=== PATIENT | female | born 1970 | race Caucasian/White ===

== ENCOUNTER 2018-03-23 15:38 | Outpatient (REF) | payer BC, SELFPAY ==
[2018-03-23 21:20] LABS: TSH (W/Ref FT4) 1.24 uIU/mL (0.358-3.74)
== END 2018-03-23 15:39 ==
LOC: NCHCN 15:38
PROVIDERS: PCP Family Medicine; Visit Provider Nurse Practitioner Family
DX: M25.559 Pain in unspecified hip (principal); F32.9 Major depressive disorder, single episode, unspecified; E66.9 Obesity, unspecified
CPT/HCPCS: 84443

== ENCOUNTER 2018-09-07 09:42 | Outpatient (REF) | payer BC, SELFPAY ==
[2018-09-07 21:23] LABS: HCT 38.8 % (36.0-46.0); HGB 12.9 g/dL (12.0-15.5); Mean Corp. HGB Concentration 33.2 g/dL (32.0-36.0); Mean Corpuscular Hemoglobin 30.6 pg (27.0-33.0); Mean Corpuscular Volume 91.9 fL (80-95); Mean Platelet Volume 10.3 fL (8.0-11.0); Platelet Count 341 x1000/uL (130-400); RBC 4.22 m/cumm (4.00-5.20); RBC Distribution Width 12.5 % (11.7-14.6); White Blood Cell Count 5.08 k/cumm (4.4-10.8)
[2018-09-07 21:32] LABS: ALT 18 U/L (12-78); AST 8 U/L (15-37); Albumin 3.5 g/dL (3.4-5.0); Alkaline Phosphatase 57 U/L (46-116); Anion Gap 11.1 mmol/L (3-11); BUN 10 mg/dL (7-18); Bilirubin, Total 0.5 mg/dL (0.2-1.0); CO2 24.9 mmol/L (21.0-32.0); CREATININE 0.99 mg/dL (0.55-1.02); Chloride 105 mmol/L (98-107); Cholesterol 226 mg/dL (50-200); Glucose 89 mg/dL (70-100); HDL Cholesterol 47 mg/dL (40-60); LDL CHOLESTEROL 146 mg/dL (<100); Potassium 4.4 mmol/L (3.5-5.1); Sodium 141 mmol/L (136-145); TSH 1.23 uIU/mL (0.358-3.74); Total Protein 6.7 g/dL (6.4-8.2); Triglyceride 151 mg/dL (30-150)
== END 2018-09-07 10:02 ==
LOC: NCHCN 09:42
PROVIDERS: PCP Family Medicine; Visit Provider Nurse Practitioner Family
DX: R03.0 Elevated blood-pressure reading, without diagnosis of hypertension (principal); M54.2 Cervicalgia
CPT/HCPCS: 80053; 80061; 83721; 85027; 84443

== ENCOUNTER 2020-01-19 09:27 | Outpatient (REF) | payer BC, SELFPAY ==
[2020-01-19 21:17] LABS: Abs Immature Grans 0.01 k/cumm (0.0-0.09); Absolute Basophil Count 0.03 k/cumm (0.0-0.2); Absolute Eosinophil Count 0.24 k/cumm (0.0-0.7); Absolute Lymphocyte Count 2.25 k/cumm (1.2-3.4); Absolute Monocyte Count 0.45 k/cumm (0.11-0.7); Basophils % 0.5; Eosinophils % 3.9; HCT 37.3 % (36.0-46.0); HGB 12.7 g/dL (12.0-15.5); Immature Grans % 0.2 %; Mean Corpuscular Hemoglobin 31.1 pg (27.0-33.0); Mean Corpuscular Volume 91.4 fL (80-95); Mean Platelet Volume 10.1 fL (8.0-11.0); Monocytes % 7.4; Platelet Count 359 x1000/uL (130-400); RBC 4.08 m/cumm (4.00-5.20); RBC Distribution Width 11.9 % (11.7-14.6); White Blood Cell Count 6.08 k/cumm (4.4-10.8)
== END 2020-01-19 09:47 ==
LOC: NCHCN 09:27
PROVIDERS: PCP Family Medicine; Visit Provider Nurse Practitioner Community Health
DX: M54.2 Cervicalgia (principal); M54.12 Radiculopathy, cervical region; Z01.818 Encounter for other preprocedural examination
CPT/HCPCS: 85025

== ENCOUNTER 2020-04-11 22:46 | Outpatient (REF) | payer BC, SELFPAY ==
[2020-04-14 15:43] LABS: Patient Race White; SARS-CoV-2 RNA Undetected (Undetected); SARS-CoV-2 Specimen Source Nasopharynx
== END 2020-04-11 23:06 ==
LOC: NCHCN 22:46
PROVIDERS: PCP Family Medicine; Visit Provider Nurse Practitioner Family
DX: Z11.59 Encounter for screening for other viral diseases (principal)
CPT/HCPCS: U0003

== ENCOUNTER 2020-04-24 15:32 | Outpatient (REF) | payer BC, SELFPAY ==
[2020-04-28 07:03] LABS: Patient Race White; SARS-CoV-2 RNA Undetected (Undetected); SARS-CoV-2 Specimen Source Nasopharynx
== END 2020-04-24 15:52 ==
LOC: NCHCN 15:32
PROVIDERS: PCP Family Medicine; Visit Provider Nurse Practitioner Family
DX: Z20.828 Contact with and (suspected) exposure to other viral communicable diseases (principal)
CPT/HCPCS: U0003

== ENCOUNTER 2020-05-15 09:36 | Outpatient (REF) | payer BC, SELFPAY ==
[2020-05-15 21:30] LABS: Calculated LDL 135 mg/dL (<100); Cholesterol 223 mg/dL (<200); HDL Cholesterol 37 mg/dL (40-60); Triglyceride 255 mg/dL (<150)
[2020-05-15 21:44] LABS: Hemoglobin A1C 5.8 % (<5.7)
== END 2020-05-15 09:56 ==
LOC: NCHCN 09:36
PROVIDERS: PCP Family Medicine; Visit Provider Nurse Practitioner Family
DX: E66.9 Obesity, unspecified (principal); Z83.3 Family history of diabetes mellitus; Z13.1 Encounter for screening for diabetes mellitus; Z13.220 Encounter for screening for lipoid disorders
CPT/HCPCS: 80061; 83036

== ENCOUNTER 2020-08-07 18:31 | Outpatient (REF) | payer BC, SELFPAY ==
[2020-08-07 20:55] LABS: BUN 15 mg/dL (7-18); CREATININE 1.16 mg/dL (0.55-1.02); Calcium 9.3 mg/dL (8.5-10.1); Chloride 100 mmol/L (98-107); Estimated GFR 49.65 (mL/min/1.73m2); Glucose 98 mg/dL (74-106); Sodium 138 mmol/L (136-145)
== END 2020-08-07 18:51 ==
LOC: NCHCN 18:31
PROVIDERS: PCP Family Medicine; Visit Provider Nurse Practitioner Family
DX: I10 Essential (primary) hypertension (principal); R73.03 Prediabetes
CPT/HCPCS: 80048; 83036

== ENCOUNTER 2020-08-16 09:08 | Outpatient (REF) | payer BC, SELFPAY ==
[2020-08-16 13:53] LABS: Potassium 3.3 mmol/L (3.5-5.1)
== END 2020-08-16 09:28 ==
LOC: NCHCN 09:08
PROVIDERS: PCP Family Medicine; Visit Provider Nurse Practitioner Family
DX: E87.6 Hypokalemia (principal)
CPT/HCPCS: 84132

== ENCOUNTER 2020-12-04 10:11 | Outpatient (REF) | payer BC, SELFPAY ==
[2020-12-04 14:23] LABS: Hemoglobin A1C 5.8 % (<5.7)
[2020-12-04 14:42] LABS: Anion Gap 13.1 mmol/L (3-11); BUN 14 mg/dL (7-18); CO2 26.9 mmol/L (21.0-32.0); Calcium 9.1 mg/dL (8.5-10.1); Chloride 101 mmol/L (98-107); Estimated GFR 58.93 (mL/min/1.73m2); Glucose 93 mg/dL (74-106); Potassium 3.3 mmol/L (3.5-5.1); Sodium 141 mmol/L (136-145)
== END 2020-12-04 10:12 | disposition home or self-care (01) ==
LOC: NCHCN 10:11
PROVIDERS: PCP Family Medicine; Visit Provider Nurse Practitioner Family
DX: I10 Essential (primary) hypertension (principal); R73.03 Prediabetes
CPT/HCPCS: 80048; 83036

== ENCOUNTER 2022-06-19 14:55 | Outpatient (REF) | payer BC, SELFPAY ==
[2022-06-19 16:36] LABS: Anion Gap 7.3 mmol/L (3-11); BUN 20 mg/dL (7-18); CO2 29.7 mmol/L (21.0-32.0); CREATININE 1.1 mg/dL (0.55-1.02); Calcium 9.4 mg/dL (8.5-10.1); Chloride 101 mmol/L (98-107); Estimated GFR 60.84 (mL/min/1.73m2); Glucose 90 mg/dL (74-106); Potassium 3.5 mmol/L (3.5-5.1); Sodium 138 mmol/L (136-145)
== END 2022-06-19 14:56 | disposition home or self-care (01) ==
LOC: NCHCN 14:55
PROVIDERS: PCP Family Medicine; Visit Provider Family Medicine
DX: R73.03 Prediabetes (principal)
CPT/HCPCS: 80048